=== PATIENT | female | born 1950 | race Caucasian/White ===

== ENCOUNTER 2016-05-21 10:34 | Emergency (ER) | payer MEDICARE ==
[~2016-05-21] VITALS: Ht 154.9 cm; Wt 62.0 kg
[2016-05-21 11:02] VITALS: BP 169/91; PULSE 83; RESP 16; TEMP 98.1; O2SAT 96
[2016-05-21] MEDS ORDERED: METO25TA3 PO (11:42)
[2016-05-21] MEDS ORDERED: VITA100064 PO (11:42)
[2016-05-21] MEDS ORDERED: ALPR.25 PO (11:42)
[2016-05-21] MEDS ORDERED: SYNT88TA PO (11:42)
[2016-05-21] MEDS ORDERED: TETANUS/DIPHTHERIA TOXOID ADULT 0.5 ML VIAL IM ONE (11:45)
--- NOTE | 2016-05-21 11:45 | PD ---
HPI . Left index finger laceration Chief Complaint: Laceration/Skin Injury Time Seen by Provider: 11:42 Travel History International Travel<30 days: No Contact w/Intl Traveler<30days: No Traveled to known affect area: No History of Present Illness HPI 66-year-old with history of hypertension and hypothyroidism here with complaints of left index finger laceration that occurred earlier this morning. Patient was wiping a glass, when cracked and split the tip of her finger. She has approximately a 0.5 cm laceration that is very superficial at the tip of her finger. Bleeding is controlled. She does complain of pain at the site of the laceration, however there is no pain elsewhere. She is not certain of her last tetanus. She has no other concerns or issues. PFSH Past Medical History Anxiety: Yes Hypertension: Yes Thyroid Disease: Yes (Hypo-) Tetanus Vaccination: > 5 Years Influenza Vaccination: No ?: Not LMP: MENOPAUSAL Menopausal: Yes Dilation and Curettage (D&C): Yes Past Surgical History Tonsillectomy: Yes Social History Alcohol Use: Yes (Occ.) Tobacco Use: No Substance Use: No Allergies-Medications (Allergen,Severity, Reaction): Coded Allergies: No Known Allergies (Unverified , 05/21/16) Reported Meds & Prescriptions Reported Meds & Active Scripts Active Reported Vitamin D (Cholecalciferol) 1,000 Unit Tab 1,000 Units PO DAILY Xanax (Alprazolam) 0.25 Mg Tab 0.25 Mg PO Q8H PRN Synthroid (Levothyroxine Sodium) 88 Mcg Tab 88 Mcg PO DAILY Metoprolol Tartrate 25 Mg Tab 25 Mg PO BID Review of Systems General / Constitutional: No: Fever Eyes: No: Visual changes HENT: No: Headaches Cardiovascular: No: Chest Pain or Discomfort Respiratory: No: Shortness of Breath Gastrointestinal: No: Abdominal Pain Genitourinary: No: Dysuria Musculoskeletal: No: Pain Skin: Positive Other (left index finger laceration ), No Rash Neurologic: No: Weakness Psychiatric: No: Depression Endocrine: No: Polydipsia Hematologic/Lymphatic: No: Easy Bruising Physical Exam Narrative GENERAL: AAO x 3, no acute distress, Well-nourished, well-developed patient. SKIN: Warm and dry. No visible rashes or bruising. There is a small 0.5 cm laceration to the distal tip of the index finger on the left hand. No bleeding. No evidence of foreign body. Sensation is normal. HEAD: Normocephalic and atraumatic. EYES: No scleral icterus. No injection or drainage. ENT: No nasal drainage noted. Mucous membranes pink. Airway patent. NECK: Supple, trachea midline. No JVD. CARDIOVASCULAR: Regular rate and rhythm without murmurs, gallops, or rubs. RESPIRATORY: Breath sounds equal bilaterally. No accessory muscle use. No rhonchi or rales. GASTROINTESTINAL: Abdomen soft, non-tender, nondistended. EXTREMITIES: No cyanosis or edema. Left hand all digits normal range of motion. No evidence of tendon injury. BACK: Nontender without obvious deformity. No CVA tenderness. PSYCH: AAO x 3, normal affect. LACERATION LOCATION: Distal tip of left index finger no nail involvement LENGTH: 0.5 cm NUMBER OF STITCHES/KYLE: Dermabond and Steri-Strip REPAIR: The area of the laceration was prepped with Betadine and sterilely draped. The wound was copiously irrigated and explored without evidence of foreign body, tendon injury or neurovascular injury, tourniquet was used control blood flow. The wound was closed using Dermabond and Steri-Strip. This was a single layer repair. A sterile dressing was applied. The patient was advised to keep the dressing clean and dry. Patient tolerated the procedure well. Data Data Last Documented VS Vital Signs Date Time Temp Pulse Resp B/P Pulse Ox O2 Delivery O2 Flow Rate FiO2 05/21/16 11:02 98.1 83 16 169/91 96 Orders Tetanus/Diphtheria Tox Adult (Tetanus/Di (05/21/16 11:45) MDM Medical Decision Making Medical Screen Exam Complete: Yes Emergency Medical Condition: Yes Medical Record Reviewed: Yes Differential Diagnosis laceration, less likely finger fracture, less likely abrasion Narrative Course 66-year-old with history of hypertension and hypothyroidism here with complaints of left index finger laceration that occurred earlier this morning. Patient was wiping a glass, when cracked and split the tip of her finger. She has approximately a 0.5 cm laceration that is very superficial at the tip of her finger. Bleeding is controlled. She does complain of pain at the site of the laceration, however there is no pain elsewhere. She is not certain of her last tetanus. She has no other concerns or issues. Procedures Procedure Narrative LACERATION LOCATION: Distal tip of left index finger no nail involvement LENGTH: 0.5 cm NUMBER OF STITCHES/KYLE: Dermabond and Steri-Strip REPAIR: The area of the laceration was prepped with Betadine and sterilely draped. The wound was copiously irrigated and explored without evidence of foreign body, tendon injury or neurovascular injury, tourniquet was used control blood flow. The wound was closed using Dermabond and Steri-Strip. This was a single layer repair. A sterile dressing was applied. The patient was advised to keep the dressing clean and dry. Patient tolerated the procedure well. Diagnosis Primary Impression: Laceration of left index finger Patient Instructions: Acute Wound Care (ED), Finger Laceration (ED), General Instructions Additional Instructions: Please return to emergency department if your symptoms return or worsen. Follow up with your primary care provider. Take medications as prescribed. [place] for worsening signs of infection which include increased redness, increased warmth, purulent drainage, increased swelling or streaking. You received a tetanus shot today. You may experience tenderness at the injection site. This is normal. You can use tylenol or motrin as needed for pain . Med/Other Pt SpecificInfo: No Change to Meds Disposition: 01 DISCHARGE HOME Condition: Stable Erendira Collins May 21, 2016 11:45
== END 2016-05-21 12:10 | disposition home or self-care (01) ==
LOC: PHEFT 10:34
DX: S61.211A Laceration without foreign body of left index finger without damage to nail, initial encounter (principal); I10 Essential (primary) hypertension; E03.9 Hypothyroidism, unspecified; Z23 Encounter for immunization
CPT/HCPCS: 12001; 90471; 90714

== ENCOUNTER 2017-07-11 13:36 | Emergency (ER) | payer MEDICARE ==
[~2017-07-11] VITALS: Ht 160 cm; Wt 62.3 kg
[~2017-07-11 13:36] MED LIST: ALPR.25 PO; METO25TA3 PO; SYNT88TA PO; VITA100064 PO
[2017-07-11 13:40] VITALS: BP 108/69; PULSE 84; RESP 16; TEMP 99.3; O2SAT 98
[2017-07-11 13:51] VITALS: BP 195/92; PULSE 93; RESP 16; TEMP 99.3; O2SAT 98
[2017-07-11] MEDS ORDERED: CYCL10TA PO (15:29)
[2017-07-11] MEDS ORDERED: IBUP1TAB7 PO (15:29)
--- NOTE | 2017-07-11 15:30 | PD ---
HPI Chief Complaint: Pain: Acute or Chronic Time Seen by Provider: 14:51 Travel History International Travel<30 days: No Contact w/Intl Traveler<30days: No Traveled to known affect area: No History of Present Illness HPI 67-year-old female here with left shoulder pain ongoing for 2 weeks. She reports pain originated after starting a workout regimen where she was doing push-ups. Pain is located to the proximal humerus and within the left shoulder joint. It is reproducible to palpation and range of motion of the arm. This morning she awoke after sleeping with her left arm raised above her head and felt as if the left shoulder pain was worse. She denies chest pain, shortness of breath, diaphoresis. Symptom severity is mild to moderate. Aggravated by movement and palpation. Slightly relieved with immobilization and rest. PFSH Past Medical History Hx Anticoagulant Therapy: No Anxiety: Yes Cardiovascular Problems: Yes (HTN) Diabetes: No Hypertension: Yes Thyroid Disease: Yes (Hypo-) ?: Not Menopausal: Yes Dilation and Curettage (D&C): Yes Past Surgical History Hysterectomy: Yes Tonsillectomy: Yes Social History Alcohol Use: Yes (Occ.) Tobacco Use: No Substance Use: No Allergies-Medications (Allergen,Severity, Reaction): Coded Allergies: No Known Allergies (Unverified Adverse Reaction, Unknown, 07/11/17) Reported Meds & Prescriptions Reported Meds & Active Scripts Active Reported Synthroid (Levothyroxine Sodium) 88 Mcg Tab 88 Mcg PO DAILY Metoprolol Tartrate 25 Mg Tab 25 Mg PO BID Review of Systems Except as stated in HPI: all other systems reviewed are Neg General / Constitutional: No: Fever Eyes: No: Visual changes HENT: No: Headaches Cardiovascular: No: Chest Pain or Discomfort Respiratory: No: Shortness of Breath Genitourinary: No: Dysuria Physical Exam Narrative GENERAL: Alert and well-appearing 59-year-old female. SKIN: Warm and dry. HEAD: Normocephalic. EYES: No scleral icterus. No injection or drainage. NECK: Supple, trachea midline. CARDIOVASCULAR: Regular rate and rhythm without murmurs, gallops, or rubs. RESPIRATORY: Breath sounds equal bilaterally. No accessory muscle use. GASTROINTESTINAL: Abdomen soft, non-tender, nondistended. MUSCULOSKELETAL: No cyanosis, or edema. Left upper extremely: + Tenderness to the proximal humerus. Reproducible pain with forward extension and external rotation of the shoulder. Palpable distal pulses. Normal sensation. Brisk cap refill. BACK: Nontender without obvious deformity. No CVA tenderness. Data Data Last Documented VS Vital Signs Date Time Temp Pulse Resp B/P (MAP) Pulse Ox O2 Delivery O2 Flow Rate FiO2 07/11/17 13:51 99.3 93 16 195/92 (126) 98 Orders Orders Shoulder, Limited(2vws) (07/11/17 ) [facility] Medical Decision Making Medical Screen Exam Complete: Yes Emergency Medical Condition: Yes Differential Diagnosis Arthralgia, sprain/strain, rotator cuff injury, versions shoulder, fracture Narrative Course This is a 59-year-old female here with left shoulder pain 2 weeks. The pain is reproducible to palpation of the proximal humerus and range of motion of the upper extremity. Diagnosis Primary Impression: Shoulder pain Qualified Codes: M25.512 - Pain in left shoulder Referrals: Orthopedist Primary Care Physician Additional Instructions: Medication as directed. Sling for comfort. Begin light stretching daily Follow up with your primary doctor. Return to give new or worsening symptoms. Scripts Cyclobenzaprine (Flexeril) 10 Mg Tab 10 MG PO TID for Muscle Spasm, #15 TAB 0 Refills Prov: Flori Brady 07/11/17 Ibuprofen (Ibuprofen) 800 Mg Tab 800 MG PO Q6HR Y for PAIN, #40 TAB 0 Refills Prov: Flori Brady 07/11/17 Disposition: 01 DISCHARGE HOME Condition: Stable Flori Brady July 11, 2017 15:30
--- NOTE | 2017-07-11 15:44 | RADRPT ---
EXAM DATE/TIME: 07/11/2017 15:24 [place] COMPARISON: No previous studies available for comparison. INDICATIONS : Left shoulder pain and limited mobility, no known injury. MEDICAL HISTORY : None. SURGICAL HISTORY : None. ENCOUNTER: Initial ACUITY: 2 weeks PAIN SCORE: 7/10 LOCATION: Left shoulder FINDINGS: 2 views of the left shoulder demonstrate no acute fracture or dislocation. The bones are undermineral ized. There is osteoarthritis at the acromioclavicular joint. Ossification projects between the clavi denia and coracoid process on the frontal projection. No soft tissue abnormality is identified. Visuali zed left chest demonstrates no acute finding. CONCLUSION: 1. No acute left shoulder abnormality is identified. 2. There is osteoarthritis at the acromioclavicular joint. Ossific density superior to left coracoid process could represent mineralization within the coracoclavicular ligaments versus a loose body. Damien Guan MD on July 11, 2017 at 15:40 Board Certified Radiologist. This report was verified electronically.
== END 2017-07-11 16:01 | disposition home or self-care (01) ==
LOC: PHEFT 13:36
DX: M25.512 Pain in left shoulder (principal); F41.9 Anxiety disorder, unspecified; I10 Essential (primary) hypertension; E03.9 Hypothyroidism, unspecified; Z79.899 Other long term (current) drug therapy
CPT/HCPCS: 73030; 99283